=== PATIENT | female | born 1945 | race African-American/Black ===

== ENCOUNTER → 2023-07-08 08:44 | Outpatient (REF) | payer OTHER, SELFPAY | LOC: DHCBC/DCA 08:44 | PROVIDERS: ATTENDING PHYSICIAN Internal Medicine Cardiovascular Disease; FAMILY PHYSICIAN Family Medicine | DX: R06.09 Other forms of dyspnea (principal) | CPT/HCPCS: 78452; 93017; A9500; J2785 ==

== ENCOUNTER → 2023-07-29 10:22 | Outpatient (REF) | payer OTHER, SELFPAY | LOC: DHCBS HW 10:22 | PROVIDERS: ATTENDING PHYSICIAN Internal Medicine Cardiovascular Disease; FAMILY PHYSICIAN Family Medicine | DX: R06.09 Other forms of dyspnea (principal) | CPT/HCPCS: 93306 ==